=== PATIENT | male | born 1975 | race American Indian/Alaskan Native ===

== ENCOUNTER 2019-03-15 10:33 | Observation (INO) | payer MEDICAID ==
[2019-03-15] MEDS ORDERED: Aspirin 81 MG Tab.Chew PO ONE (10:41)
[2019-03-15] MEDS ORDERED: Sodium Chloride 0.9% 1,000 ML IV ONE (10:41)
--- NOTE | 2019-03-15 10:45 | EDM.PDOC ---
ED HPI GENERAL MEDICAL PROBLEM - General Chief Complaint: Chest Pain Stated Complaint: CHEST PAIN Time Seen by Provider: 03/15/19 10:35 Source of Information: Reports: Patient History Limitations: Reports: No Limitations - History of Present Illness INITIAL COMMENTS - FREE TEXT/NARRATIVE: HISTORY AND PHYSICAL: History of present illness: Patient is a 43-year-old male who presents to the ED today with concern of chest pain that started 1-2 hours ago while patient was working. Patient states she started having sharp chest pain in the left side of his chest and states it does not radiate anywhere and has no other associated symptoms. Patient states he did not take anything for her symptoms prior to coming to the ED. Patient states he has a history of prostate cancer but denies any other health history. Patient denies any other symptoms or concerns. Patient denies fever, chills, shortness of breath, or cough. Denies headache, neck stiff ness, change in vision, syncope, or near syncope. Denies nausea, vomiting, abdominal pain, diarrhea, constipation, or dysuria. Has not noted any blood in urine or stool. Patient has been eating and drinking appropriately. Review of systems: As per history of present illness and below otherwise all systems reviewed and negative. Past medical history: As per history of present illness and as reviewed below otherwise noncontributory. Surgical history: As per history of present illness and as reviewed below otherwise noncontributory. Social history: See social history for further information Family history: As per history of present illness and as reviewed below otherwise noncontributory. Physical exam: General: Patient is alert, oriented, and in no acute distress. Patient laying comfortably on exam table. HEENT: Atraumatic, normocephalic, pupils equal and reactive bilaterally, negative for conjunctival pallor or scleral icterus, mucous membranes moist, TMs normal bilaterally, throat clear, neck supple, nontender, trachea midline. No drooling or trismus noted. No meningeal signs. No hot potato voice noted. Lungs: Clear to auscultation, breath sounds equal bilaterally, chest nontender. Heart: S1S2, regular rate and rhythm without overt murmur Abdomen: Soft, nondistended, nontender. Negative for masses or hepatosplenomegaly. Negative for costovertebral tenderness. Pelvis: Stable nontender. Genitourinary: Deferred. Rectal: Deferred. Skin: Intact, warm, dry. No lesions or rashes noted. Extremities: Atraumatic, negative for cords or calf pain. Neurovascular unremarkable. Neuro: Awake, alert, oriented. Cranial nerves II through XII unremarkable. Cerebellum unremarkable. Motor and sensory unremarkable throughout. Exam nonfocal. Notes: Dr. Patel consulted on patient and will admit to observation on telemetry. Voices understanding and is agreeable to plan of care. Denies any further questions or concerns at this time. Diagnostics: CBC, CMP, UA, EKG, chest x-ray, troponin, lipase Therapeutics: ASA, Nitro Prescription: None Impression: Chest pain r/o ACS Plan: Admit to observation to Dr. Patel on telemetry Definitive disposition and diagnosis as appropriate pending reevaluation and review of above. Chest Pain Pain Score (Numeric/FACES): 4 - Related Data Allergies Allergy/AdvReac Type Severity Reaction Status Date / Time Penicillins Allergy Hives Verified 03/15/19 10:41 Home Meds: Home Meds . [No Known Home Meds] 03/15/19 [History] ED ROS GENERAL - Review of Systems Review Of Systems: Comprehensive ROS is negative, except as noted in HPI. ED EXAM, GENERAL - Physical Exam Exam: See Below (see dictation) Course - Vital Signs Last Recorded V/S: Last Vital Signs Temp 97.3 F 03/15/19 10:42 Pulse 87 03/15/19 11:27 Resp 17 03/15/19 11:27 BP 111/68 03/15/19 11:27 Pulse Ox 98 03/15/19 11:27 - Orders/Labs/Meds Orders: Active Orders 24 hr Category Date Time Status Admission Status [Patient Status] [ADT] Stat ADT 03/15/19 11:42 Ordered EKG Documentation Completion [RC] STAT Care 03/15/19 10:41 Active Nitroglycerin [Nitrostat] Med 03/15/19 10:41 Active 0.4 mg SL Q5M PRN Medication Orders Nitroglycerin (Nitrostat) 0.4 mg SL Q5M PRN PRN Reason: Chest Pain Last Admin: 03/15/19 10:53 Dose: 0.4 mg Labs: Laboratory Tests 03/15/19 03/15/19 03/15/19 Range/Units 10:30 10:30 10:30 WBC 6.87 (4.0-11.0) K/uL RBC 4.66 (4.50-5.90) M/uL Hgb 15.2 (13.0-17.0) g/dL Hct 43.6 (38.0-50.0) % MCV 93.6 (80.0-98.0) fL MCH 32.6 H (27.0-32.0) pg MCHC 34.9 (31.0-37.0) g/dL RDW Std Deviation 51.0 (28.0-62.0) fl RDW Coeff of Jonatan 15 (11.0-15.0) % Plt Count 146 L (150-400) K/uL MPV 11.60 (7.40-12.00) fL Neut % (Auto) 60.6 (48.0-80.0) % Lymph % (Auto) 34.2 (16.0-40.0) % Major % (Auto) 3.1 (0.0-15.0) % Eos % (Auto) 1.2 (0.0-7.0) % Baso % (Auto) 0.9 (0.0-1.5) % Neut # (Auto) 4.2 (1.4-5.7) K/uL Lymph # (Auto) 2.4 (0.6-2.4) K/uL Major # (Auto) 0.2 (0.0-0.8) K/uL Eos # (Auto) 0.1 (0.0-0.7) K/uL Baso # (Auto) 0.1 (0.0-0.1) K/uL Nucleated RBC % 0.0 /100WBC Nucleated RBCs # 0 K/uL INR 0.90 Sodium 140 (136-148) mmol/L Potassium 3.5 (3.5-5.1) mmol/L Chloride 105 (98-107) mmol/L Carbon Dioxide 19.6 L (21.0-32.0) mmol/L BUN 13 (7.0-18.0) mg/dL Creatinine 1.1 (0.8-1.3) mg/dL Est Cr Clr Drug Dosing 113.40 mL/min Estimated GFR (MDRD) > 60.0 ml/min Glucose 71 L (74-106) mg/dL Calcium 8.3 L (8.5-10.1) mg/dL Total Bilirubin 0.3 (0.2-1.0) mg/dL AST 22 (15-37) IU/L ALT 28 (14-63) IU/L Alkaline Phosphatase 70 (46-116) U/L Troponin I < 0.050 (0.000-0.056) ng/mL Total Protein 7.3 (6.4-8.2) g/dL Albumin 4.1 (3.4-5.0) g/dL Globulin 3.2 (2.6-4.0) g/dL Albumin/Globulin Ratio 1.3 (0.9-1.6) Lipase 98 (73-393) U/L Urine Color Urine Appearance Urine pH (5.0-8.0) Ur Specific [place] (1.001-1.035) Urine Protein (NEGATIVE) mg/dL Urine Glucose (UA) (NEGATIVE) mg/dL Urine Ketones (NEGATIVE) mg/dL Urine Occult Blood (NEGATIVE) Urine Nitrite (NEGATIVE) Urine Bilirubin (NEGATIVE) Urine Urobilinogen (<2.0) EU/dL Ur Leukocyte Esterase (NEGATIVE) 03/15/19 Range/Units 11:15 WBC (4.0-11.0) K/uL RBC (4.50-5.90) M/uL Hgb (13.0-17.0) g/dL Hct (38.0-50.0) % MCV (80.0-98.0) fL MCH (27.0-32.0) pg MCHC (31.0-37.0) g/dL RDW Std Deviation (28.0-62.0) fl RDW Coeff of Jonatan (11.0-15.0) % Plt Count (150-400) K/uL MPV (7.40-12.00) fL Neut % (Auto) (48.0-80.0) % Lymph % (Auto) (16.0-40.0) % Major % (Auto) (0.0-15.0) % Eos % (Auto) (0.0-7.0) % Baso % (Auto) (0.0-1.5) % Neut # (Auto) (1.4-5.7) K/uL Lymph # (Auto) (0.6-2.4) K/uL Major # (Auto) (0.0-0.8) K/uL Eos # (Auto) (0.0-0.7) K/uL Baso # (Auto) (0.0-0.1) K/uL Nucleated RBC % /100WBC Nucleated RBCs # K/uL INR Sodium (136-148) mmol/L Potassium (3.5-5.1) mmol/L Chloride (98-107) mmol/L Carbon Dioxide (21.0-32.0) mmol/L BUN (7.0-18.0) mg/dL Creatinine (0.8-1.3) mg/dL Est Cr Clr Drug Dosing mL/min Estimated GFR (MDRD) ml/min Glucose (74-106) mg/dL Calcium (8.5-10.1) mg/dL Total Bilirubin (0.2-1.0) mg/dL AST (15-37) IU/L ALT (14-63) IU/L Alkaline Phosphatase (46-116) U/L Troponin I (0.000-0.056) ng/mL Total Protein (6.4-8.2) g/dL Albumin (3.4-5.0) g/dL Globulin (2.6-4.0) g/dL Albumin/Globulin Ratio (0.9-1.6) Lipase (73-393) U/L Urine Color YELLOW Urine Appearance CLEAR Urine pH 5.5 (5.0-8.0) Ur Specific [place] 1.020 (1.001-1.035) Urine Protein NEGATIVE (NEGATIVE) mg/dL Urine Glucose (UA) NEGATIVE (NEGATIVE) mg/dL Urine Ketones 15 H (NEGATIVE) mg/dL Urine Occult Blood NEGATIVE (NEGATIVE) Urine Nitrite NEGATIVE (NEGATIVE) Urine Bilirubin NEGATIVE (NEGATIVE) Urine Urobilinogen 0.2 (<2.0) EU/dL Ur Leukocyte Esterase NEGATIVE (NEGATIVE) Meds: Medications Generic Name Dose Route Start Last Admin Trade Name Freq PRN Reason Stop Dose Admin Nitroglycerin 0.4 mg 03/15/19 10:41 03/15/19 10:53 Nitrostat SL 0.4 mg Q5M PRN Administration Chest Pain Discontinued Medications Generic Name Dose Route Start Last Admin Trade Name Freq PRN Reason Stop Dose Admin Aspirin 324 mg 03/15/19 10:41 12/05/19 10:52 Aspirin PO 03/15/19 10:42 324 mg ONETIME ONE Administration Sodium Chloride 1,000 mls @ 999 mls/hr 03/15/19 10:41 03/15/19 10:50 Normal Saline IV 03/15/19 11:41 999 mls/hr BOLUS ONE Administration Morphine Sulfate 2 mg 03/15/19 11:10 03/15/19 11:17 Morphine IVPUSH 03/15/19 11:11 2 mg ONETIME ONE Administration Departure - Departure Time of Disposition: 11:43 Disposition: Refer to Observation Clinical Impression: Chest pain Qualifiers: Chest pain type: unspecified Qualified Code(s): R07.9 - Chest pain, unspecified - Discharge Information Referrals: PCP,Unknown [Ordering Only Provider] - Forms: ED Department Discharge - My Orders Last 24 Hours: My Active Orders 03/15/19 10:41 EKG Documentation Completion [RC] STAT Nitroglycerin [Nitrostat] 0.4 mg SL Q5M PRN 03/15/19 11:42 Admission Status [Patient Status] [ADT] Stat - Assessment/Plan Last 24 Hours: My Active Orders 03/15/19 10:41 EKG Documentation Completion [RC] STAT Nitroglycerin [Nitrostat] 0.4 mg SL Q5M PRN 03/15/19 11:42 Admission Status [Patient Status] [ADT] Stat
[2019-03-15] MEDS: Nitroglycerin 0.4 MG Tab.SL SL PRN ×3 (10:53→17:51)
[2019-03-15] MEDS ORDERED: Morphine 2 MG/ML Syringe IVPUSH ONE (11:10)
[2019-03-15 11:21] LABS: BLOOD UREA NITROGEN,BUN 13 mg/dL (7.0-18.0); CARBON DIOXIDE,CO2 19.6 mmol/L (21.0-32.0); CHLORIDE,CL 105 mmol/L (98-107); GLUCOSE RANDOM 71 mg/dL (74-106); LIPASE 98 U/L (73-393); POTASSIUM,K 3.5 mmol/L (3.5-5.1); SODIUM,NA 140 mmol/L (136-148)
--- NOTE | 2019-03-15 11:34 | CR ---
INDICATION: chest pain TECHNIQUE: Chest 1 view. COMPARISON: None. FINDINGS: Cardiovascular and mediastinum: Heart size and vasculature are normal in caliber and appearance. Mediastinum is within normal limits. Lungs and pleural space: Lungs are clear. No sign of infiltrate or mass. No sign of pleural effusion. No pneumothorax. Bones and soft tissues: No significant findings. IMPRESSION: Unremarkable chest. Dictated by: Werner Horne MD @ 03/15/2019 11:34:00 (Electronically Signed)
[2019-03-15] MEDS ORDERED: Famotidine 20 MG/2 ML SDV IVPUSH ONE (13:02)
[2019-03-15] MEDS ORDERED: Alum Hydrox/Mag Hydrox/Simeth 15 ML, Lidocaine 2% 5 ML PO ONE ×2 (13:02)
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
[2019-03-15 13:12] LABS: HEMOGLOBIN A1C 5.8 % (4.5-6.2)
[2019-03-15] MEDS ORDERED: Acetaminophen 500 MG Tab PO ONE (14:02)
[2019-03-15] MEDS ORDERED: Acetaminophen 325 MG Tab PO PRN (16:34)
[2019-03-15] MEDS ORDERED: Ondansetron 4 MG/2 ML SDV IVPUSH PRN (16:34)
[2019-03-15] MEDS: Gabapentin 300 MG Cap PO SCH ×2 (17:51→21:04)
[2019-03-15] MEDS: Morphine 2 MG/ML Syringe IVPUSH PRN ×2 (19:19→23:52)
[2019-03-16] MEDS: Gabapentin 300 MG Cap PO SCH (06:49)
[2019-03-16] MEDS ORDERED: Escitalopram 10 MG Tab PO SCH (09:00)
--- NOTE | 2019-03-16 13:09 | PCM.DCSUM1 ---
Discharge Summary - Hospital Course Brief History: This 43 year old male with pmh of prostate ca and tobacco dependence presented to the ED today with chest pain. This chest pain started this morning at work, it is sharp in nature, mid sternum. It does not radiate. No N/V or SOB. No diaphoresis. He reports the pain worsened with deep breathing. Activity didn't seem to matter, pain came on at rest. He denies recent fevers, chills or URI symptoms. No cough or hemoptysis. He denies abdominal pain. No black or bloody BMs. No GERD symptoms. He reports not eating since last night. He denies urinary concerns. No peripheral edema. Occasionally alcohol use, no recreational drug use and smokes 1 ppd cigarettes. No significant family history of CAD or DM. Grand father had [place] in his 70s. 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 In the ED labwork WNL. Glucose noted to be 71, repeat around 1245 was 49. Given juice and sandwich. Troponin negative. EKG SR with no ST elevated or T wave inversion. BP stable. Given Nitro which dropped BP. Morphine helped pain the best. Pain is constant, but now a 4/10. ASA given in ED as well. Diagnosis: Stroke: No - Discharge Data Discharge Date: 03/16/19 Discharge Disposition: Home, Self-Care 01 Condition: Stable - Referral to Home Health Primary Care Physician: Julio Patel MD - Discharge Diagnosis/Problem(s) (1) Chest pain SNOMED Code(s): 64155838 ICD Code: R07.9 - CHEST PAIN, UNSPECIFIED Status: Acute Qualifiers: Chest pain type: unspecified Qualified Code(s): R07.9 - Chest pain, unspecified (2) Hypoglycemia SNOMED Code(s): 123375715 ICD Code: E16.2 - HYPOGLYCEMIA, UNSPECIFIED Status: Acute (3) Hx of deep venous thrombosis SNOMED Code(s): 921544364 ICD Code: Z86.718 - PERSONAL HISTORY OF OTHER VENOUS THROMBOSIS AND EMBOLISM Status: Chronic (4) Chronic back pain SNOMED Code(s): 413950556 ICD Code: M54.9 - DORSALGIA, UNSPECIFIED; G89.29 - OTHER CHRONIC PAIN Status: Chronic (5) History of prostate cancer SNOMED Code(s): 796151416 ICD Code: Z85.46 - PERSONAL HISTORY OF MALIGNANT NEOPLASM OF PROSTATE Status: Chronic - Patient Instructions Diet: Heart Healthy Diet Activity: As Tolerated Showering/Bathing: May Shower Notify Provider of: Fever, Increased Pain, Swelling and Redness, Drainage, Nausea and/or Vomiting - Discharge Plan *PRESCRIPTION DRUG MONITORING PROGRAM REVIEWED*: Not Applicable *COPY OF PRESCRIPTION DRUG MONITORING REPORT IN PATIENT [place]: Not Applicable Prescriptions/Med Rec: Aspirin 81 mg PO BEDTIME #30 tab.chew Pantoprazole Sodium [Protonix] 40 mg PO DAILY #14 tablet. Home Medications: Home Meds Escitalopram [Lexapro] 10 mg PO DAILY 03/15/19 [History] Gabapentin [Neurontin] 600 mg PO TID 03/15/19 [History] Aspirin 81 mg PO BEDTIME #30 tab.chew 03/16/19 [Rx] Pantoprazole Sodium [Protonix] 40 mg PO DAILY #14 tablet. 03/16/19 [Rx] Oxygen Therapy Mode: Room Air Patient Handouts: Aspirin, ASA chewable tablets, Nonspecific Chest Pain, Easy- to-Read, Aspirin and Your Heart, Pantoprazole tablets Referrals: PCP,Unknown [Ordering Only Provider] - - Discharge Summary/Plan Comment DC Time >30 min.: No Discharge Summary/Plan Comment: Admitting Diagnoses: Chest pain Discharge Diagnoses; Chest pain Other PMH: Prostate ca tobacco dependence Jamir was admitted and monitored for chest pain. Chest pain was only relieved with Morphine. Nitro did not help. He was also given Pepcid and GI cocktail, which he reports didn't really help. ACS ruled out, telemetry did not show ectopy overnight. he will be arrange for outpatient stress test. Work release give for light duty to be cleared for full duty after stress test. Tylenol helped slightly with pain, could be musculoskeletal or costochondritis. He denies cough. He is eager for discharge today. I will prescribe Protonix PO x 2 weeks. If pain returns return to ED or clinic for evaluation. He was counseled on tobacco cessation, which he is eager to try. [place] quit line information provided. - Patient Data Vitals - Most Recent: Last Vital Signs Temp 97.4 F 03/16/19 08:00 Pulse 65 03/16/19 08:00 Resp 16 03/16/19 08:00 BP 116/71 03/16/19 08:00 Pulse Ox 98 12/06/19 08:00 Weight - Most Recent: 92.533 kg I&O - Last 24 hours: Intake & Output 03/15/19 03/16/19 03/16/19 22:59 06:59 14:59 Intake Total 400 1490 Output Total 0 1650 Balance 400 -160 Lab Results - Last 24 hrs: Laboratory Results - last 24 hr 03/15/19 03/15/19 03/15/19 Range/Units 10:30 10:30 10:30 D-Dimer, Quantitative < 0.19 (0.0-0.50) mg/L FEU POC Glucose (60-110) mg/dL Hemoglobin A1c 5.8 (4.5-6.2) % Troponin I (0.000-0.056) ng/mL Triglycerides 110 (0-200) mg/dL Cholesterol 177 (50-200) mg/dL LDL Cholesterol, Calc 99 (60-180) mg/dL VLDL Cholesterol 22 (5-55) mg/dL HDL Cholesterol 56 (40-60) mg/dL Cholesterol/HDL Ratio 3.2 L (3.3-6.0) 03/15/19 03/15/19 03/15/19 Range/Units 12:41 13:48 16:43 D-Dimer, Quantitative (0.0-0.50) mg/L FEU POC Glucose 49 L 190 H (60-110) mg/dL Hemoglobin A1c (4.5-6.2) % Troponin I < 0.050 (0.000-0.056) ng/mL Triglycerides (0-200) mg/dL Cholesterol (50-200) mg/dL LDL Cholesterol, Calc (60-180) mg/dL VLDL Cholesterol (5-55) mg/dL HDL Cholesterol (40-60) mg/dL Cholesterol/HDL Ratio (3.3-6.0) 03/15/19 Range/Units 22:40 D-Dimer, Quantitative (0.0-0.50) mg/L FEU POC Glucose (60-110) mg/dL Hemoglobin A1c (4.5-6.2) % Troponin I < 0.050 (0.000-0.056) ng/mL Triglycerides (0-200) mg/dL Cholesterol (50-200) mg/dL LDL Cholesterol, Calc (60-180) mg/dL VLDL Cholesterol (5-55) mg/dL HDL Cholesterol (40-60) mg/dL Cholesterol/HDL Ratio (3.3-6.0) Med Orders - Current: Current Medications Discontinued Medications Acetaminophen (Tylenol Extra Strength) 1,000 mg PO ONETIME ONE Stop: 03/15/19 14:03 Last Admin: 03/15/19 14:14 Dose: 1,000 mg Acetaminophen (Tylenol) 650 mg PO Q4H PRN PRN Reason: Pain (mild 1-3) Aspirin (Aspirin) 324 mg PO ONETIME ONE Stop: 03/15/19 10:42 Last Admin: 03/15/19 10:52 Dose: 324 mg Al Hydroxide/Mg Hydroxide 15 (ml/ Lidocaine HCl 5 ml) 0 ml PO ONETIME ONE Stop: 03/15/19 13:03 Last Admin: 03/15/19 13:17 Dose: 1 each Escitalopram Oxalate (Lexapro) 10 mg PO DAILY [facility] Last Admin: 03/16/19 09:40 Dose: 10 mg Famotidine (Pepcid) 20 mg IVPUSH ONETIME ONE Stop: 03/15/19 13:03 Last Admin: 03/15/19 13:18 Dose: 20 mg Gabapentin (Neurontin) 600 mg PO TID [facility] Last Admin: 03/16/19 06:49 Dose: 600 mg Sodium Chloride (Normal Saline) 1,000 mls @ 999 mls/hr IV BOLUS ONE Stop: 03/15/19 11:41 Last Admin: 03/15/19 10:50 Dose: 999 mls/hr Morphine Sulfate (Morphine) 2 mg IVPUSH ONETIME ONE Stop: 03/15/19 11:11 Last Admin: 03/15/19 11:17 Dose: 2 mg Morphine Sulfate (Morphine) 2 mg IVPUSH Q2H PRN PRN Reason: Pain (severe 7-10) Stop: 03/16/19 16:35 Last Admin: 03/15/19 23:52 Dose: 2 mg Nitroglycerin (Nitrostat) 0.4 mg SL Q5M PRN PRN Reason: Chest Pain Last Admin: 03/15/19 17:51 Dose: 0.4 mg Ondansetron HCl (Zofran) 4 mg IVPUSH Q4H PRN PRN Reason: Nausea
== END 2019-03-16 11:40 | disposition home or self-care (01) ==
LOC: MW.ED 10:33 → MW.MS 13:31
PROVIDERS: ADMIT Internal Medicine; ATTEND Internal Medicine
DX: R07.2 Precordial pain (principal); E16.2 Hypoglycemia, unspecified; M54.9 Dorsalgia, unspecified; G89.29 Other chronic pain; F17.210 Nicotine dependence, cigarettes, uncomplicated; Z86.718 Personal history of other venous thrombosis and embolism; Z85.46 Personal history of malignant neoplasm of prostate; Z88.0 Allergy status to penicillin
CPT/HCPCS: 36415; 71045; 80053; 80061; 81003; 82962; 83036; 83690; 84484; 85025; 85379; 85610; 93005; 96361; 96374; 96375; 99285; A9270; J2270; J7030; S0028; 96376; 99284; G0378; J3490